=== PATIENT | female | born 1995 | race Caucasian/White ===

== ENCOUNTER 2019-11-13 17:44 | Emergency (ER) | payer BC ==
--- NOTE | 2019-11-13 18:57 | EDM.PDOC ---
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 Patient states that since this morning her urine has been cloudy but she started getting concerned more this afternoon when she had some mild low back pain. Patient states that she has been sitting all day and laying on the couch and noticed that her lower back is been "achy." Patient states that since she has been up and moving she is not currently having this back pain but is having cloudy urine. Patient denies any vaginal bleeding or any abdominal pain or cramping. Patient denies any other symptoms or concerns. Patient denies fever, chills, chest pain, shortness of breath, or cough. Denies headache, neck stiff ness, change in vision, syncope, or near syncope. Denies nausea, vomiting, abdominal pain, diarrhea, constipation, or dysuria. Has not noted any blood in urine or stool. Patient has been eating and drinking appropriately. Review of systems: As per history of present illness and below otherwise all systems reviewed and negative. Past medical history: As per history of present illness and as reviewed below otherwise noncontributory. Surgical history: As per history of present illness and as reviewed below otherwise noncontributory. Social history: See social history for further information Family history: As per history of present illness and as reviewed below otherwise noncontributory. Physical exam: General: Patient is alert, oriented, and in no acute distress. Patient sitting comfortably on exam table. HEENT: Atraumatic, normocephalic, pupils equal and reactive bilaterally, negative for conjunctival pallor or scleral icterus, mucous membranes moist, TMs normal bilaterally, throat clear, neck supple, nontender, trachea midline. No drooling or trismus noted. No meningeal signs. No hot potato voice noted. Lungs: Clear to auscultation, breath sounds equal bilaterally, chest nontender. Heart: S1S2, regular rate and rhythm without overt murmur Abdomen: Soft, nondistended, nontender. Negative for masses or hepatosplenomegaly. Negative for costovertebral tenderness. Pelvis: Stable nontender. Genitourinary: Deferred. Rectal: Deferred. Skin: Intact, warm, dry. No lesions or rashes noted. Extremities: Atraumatic, negative for cords or calf pain. Neurovascular unremarkable. Neuro: Awake, alert, oriented. Cranial nerves II through XII unremarkable. Cerebellum unremarkable. Motor and sensory unremarkable throughout. Exam nonfocal. Notes: Discussed importance for follow-up with her STAVE BOLT EQUALIZER provider. Voices understanding and is agreeable to plan of care. Denies any further questions or concerns at this time. Diagnostics: UA, urine culture Therapeutics: None Prescription: None Impression: H/O abnormal urine color H/O low back pain Plan: 1. Please start and/or continue to take your vitamin with folic acid once daily. 2. Tylenol as needed for pain management. This is safe to use in . 3. Follow up with your STAVE BOLT EQUALIZER as discussed. Return to the ED as needed and as discussed. Definitive disposition and diagnosis as appropriate pending reevaluation and review of above. Lower Back Pain Score (Numeric/FACES): 2 - Related Data Allergies Allergy/AdvReac Type Severity Reaction Status Date / Time No Known Allergies Allergy Verified 11/13/19 18:42 Home Meds: Home Meds . [No Known Home Meds] 11/13/19 [History] Past Medical History STAVE BOLT EQUALIZER History: Reports: - Infectious Disease History Infectious Disease History: Reports: None Social & Family History - Family History Family Medical History: Noncontributory - Tobacco Use Smoking Status *Q: Never Smoker Second Hand Smoke Exposure: No - Caffeine Use Caffeine Use: Reports: None - Recreational Drug Use Recreational Drug Use: No ED ROS GENERAL - Review of Systems Review Of Systems: Comprehensive ROS is negative, except as noted in HPI. ED EXAM, GENERAL - Physical Exam Exam: See Below (see dictation) Course - Vital Signs Last Recorded V/S: Last Vital Signs Temp 97.3 F 11/13/19 18:42 Pulse 97 11/13/19 18:42 Resp 16 11/13/19 18:42 BP 133/77 11/13/19 18:42 Pulse Ox 97 11/13/19 18:42 - Orders/Labs/Meds Orders: Active Orders 24 hr Category Date Time Status CULTURE URINE [RM] Stat Lab 12/30/19 19:32 Ordered Labs: Laboratory Tests 11/13/19 Range/Units 17:46 Urine Color YELLOW Urine Appearance CLEAR Urine pH 6.0 (5.0-8.0) Ur Specific Rogers >= 1.030 (1.001-1.035) Urine Protein NEGATIVE (NEGATIVE) mg/dL Urine Glucose (UA) NEGATIVE (NEGATIVE) mg/dL Urine Ketones NEGATIVE (NEGATIVE) mg/dL Urine Occult Blood NEGATIVE (NEGATIVE) Urine Nitrite NEGATIVE (NEGATIVE) Urine Bilirubin NEGATIVE (NEGATIVE) Urine Urobilinogen 2.0 H (<2.0) EU/dL Ur Leukocyte Esterase NEGATIVE (NEGATIVE) Departure - Departure Time of Disposition: 19:32 Disposition: Home, Self-Care 01 Clinical Impression: Abnormal urine color, History of low back pain - Discharge Information Referrals: Vivienne Ortiz MD [Primary Care Provider] - Forms: ED Department Discharge Additional Instructions: The following information is given to patients seen in the emergency department who are being discharged to home. This information is to outline your options for follow-up care. We provide all patients seen in our emergency department with a follow-up referral. The need for follow-up, as well as the timing and circumstances, are variable depending upon the specifics of your emergency department visit. If you don't have a primary care physician on staff, we will provide you with a referral. We always advise you to contact your personal physician following an emergency department visit to inform them of the circumstance of the visit and for follow-up with them and/or the need for any referrals to a consulting specialist. The emergency department will also refer you to a specialist when appropriate. This referral assures that you have the opportunity for follow-up care with a specialist. All of these measure are taken in an effort to provide you with optimal care, which includes your follow-up. Under all circumstances we always encourage you to contact your private physician who remains a resource for coordinating your care. When calling for follow-up care, please make the office aware that this follow-up is from your recent emergency room visit. If for any reason you are refused follow-up, please contact the [facility] Emergency Department at and asked to speak to the emergency department charge nurse. [facility] [address] [place] [address], [place] [address] [facility] [address] [place] [address] [facility] [address] [place] [address] 1. Please start and/or continue to take your vitamin with folic acid once daily. 2. Tylenol as needed for pain management. This is safe to use in . 3. Follow up with your STAVE [employer]OLT EQUALIZER as discussed. Return to the ED as needed and as discussed. Sepsis Event Note - Evaluation Sepsis Screening Result: No Definite Risk - Focused Exam Vital Signs: Vital Signs Temp Pulse Resp BP Pulse Ox 11/13/19 18:42 97.3 F 97 16 133/77 97 Date Exam was Performed: 11/13/19 Time Exam was Performed: 19:32 - My Orders Last 24 Hours: My Active Orders 11/13/19 19:32 CULTURE URINE [RM] Stat - Assessment/Plan Last 24 Hours: My Active Orders 11/13/19 19:32 CULTURE URINE [RM] Stat
== END 2019-11-13 19:45 | disposition home or self-care (01) ==
LOC: MW.ED 17:44
DX: O99.89 Other specified diseases and conditions complicating pregnancy, childbirth and the puerperium (principal); R82.998 Other abnormal findings in urine; Z3A.15 15 weeks gestation of pregnancy
CPT/HCPCS: 81003; 87086; 99283

== ENCOUNTER 2020-04-22 09:02 | Inpatient (IN) | payer BC ==
[2020-04-22 11:48] LABS: BLOOD UREA NITROGEN,BUN 9 mg/dL (7.0-18.0); CARBON DIOXIDE,CO2 23.2 mmol/L (21.0-32.0); CHLORIDE,CL 105 mmol/L (98-107); GLUCOSE RANDOM 82 mg/dL (74-106); SODIUM,NA 138 mmol/L (136-145)
[2020-04-22] MEDS ORDERED: Water For Irrigation,Sterile 1,000 ML Container IRR PRN (12:57)
[2020-04-22] MEDS ORDERED: Misoprostol 200 MCG Tab PO PRN (12:57)
[2020-04-22] MEDS ORDERED: Carboprost Tromethamine 250 MCG/1 ML Amp IM PRN (12:57)
[2020-04-22] MEDS ORDERED: Sodium Chloride 0.9% 10 ML Syringe FLUSH PRN (12:57)
[2020-04-22] MEDS ORDERED: Terbutaline 1 MG/ML SDV SUBCUT PRN (12:57)
[2020-04-22] MEDS ORDERED: Tranexamic Acid 1,000 MG in Sodium Chloride 0.9% 100 ML IV PRN (12:57)
[2020-04-22] MEDS ORDERED: Butorphanol 1 MG/ML SDV IVPUSH PRN (12:57)
[2020-04-22] MEDS ORDERED: Methylergonovine 0.2 MG/1 ML Amp IM PRN (12:57)
[2020-04-22] MEDS ORDERED: Sodium Chloride 0.9% 10 ML SDV IV PRN (12:57)
[2020-04-22] MEDS ORDERED: Nalbuphine 10 MG/1 ML Vial IVPUSH PRN (12:57)
[2020-04-22] MEDS ORDERED: Lidocaine 1% 50 ML MDV INJECT PRN (12:57)
[2020-04-22] MEDS ORDERED: Ondansetron 4 MG/2 ML SDV IVPUSH PRN (12:57)
[2020-04-22] MEDS ORDERED: Sodium Chloride 0.9% 2.5 ML Syringe FLUSH PRN (12:57)
[2020-04-22] MEDS ORDERED: Oxytocin/0.9 % Sodium Chloride 30 UNIT/500 ML BAG IV SCH ×2 (13:00)
[2020-04-22] MEDS ORDERED: Misoprostol 25 MCG (1/4 of 100 MCG) Tab VAG PRN (14:00)
[2020-04-22] MEDS: Lactated Ringers 1,000 ML IV SCH ×2 (14:51→18:52)
[2020-04-22] MEDS: Misoprostol 25 MCG (1/4 of 100 MCG) Tab VAG PRN ×2 (19:46→23:44)
[2020-04-23] MEDS: Misoprostol 25 MCG (1/4 of 100 MCG) Tab VAG PRN ×2 (03:49→08:40)
[2020-04-23] MEDS ORDERED: Bupivicaine/fentaNYL/NS 250 ML ONE (17:07)
[2020-04-23] MEDS: Lactated Ringers 1,000 ML IV SCH (17:17)
[2020-04-23] MEDS ORDERED: Sodium Chloride 0.9% 20 ML ONE (17:38)
[2020-04-23] MEDS ORDERED: ePHEDrine 50 MG/ML SDV ONE (17:38)
--- NOTE | 2020-04-23 18:07 | PCM.PREANE ---
Preanesthetic Assessment - Anesthesia/Transfusion/Family Hx Anesthesia History: Prior Anesthesia Without Reaction Family History of Anesthesia Reaction: No Transfusion History: No Prior Transfusion(s) - Review of Systems General: No Symptoms Pulmonary: No Symptoms Cardiovascular: No Symptoms Gastrointestinal: No Symptoms Neurological: No Symptoms Other: Reports: None - Physical Assessment Height: 1.77 m Weight: 128.82 kg ASA Class: 2 Mental Status: Alert & Oriented x3 Airway Class: Mallampati = 2 Dentition: Reports: Normal Dentition ROM/Head Extension: Full - Lab Values: Laboratory Last Values WBC 11.82 K/uL (4.0-11.0) H 04/22/20 11:13 RBC 4.29 M/uL (4.30-5.90) L 04/22/20 11:13 Hgb 13.3 g/dL (12.0-16.0) 04/22/20 11:13 Hct 39.1 % (36.0-46.0) 04/22/20 11:13 MCV 91.1 fL (80.0-98.0) 04/22/20 11:13 MCH 31.0 pg (27.0-32.0) 04/22/20 11:13 MCHC 34.0 g/dL (31.0-37.0) 04/22/20 11:13 RDW Std Deviation 42.8 fl (28.0-62.0) 04/22/20 11:13 RDW Coeff of Jessica 13 % (11.0-15.0) 04/22/20 11:13 Plt Count 189 K/uL (150-400) 04/22/20 11:13 MPV 10.50 fL (7.40-12.00) 04/22/20 11:13 Neut % (Auto) 82.3 % (48.0-80.0) H 04/22/20 11:13 Lymph % (Auto) 12.4 % (16.0-40.0) L 04/22/20 11:13 Boundary % (Auto) 4.9 % (0.0-15.0) 04/22/20 11:13 Eos % (Auto) 0.3 % (0.0-7.0) 04/22/20 11:13 Baso % (Auto) 0.1 % (0.0-1.5) 04/22/20 11:13 Neut # (Auto) 9.7 K/uL (1.4-5.7) H 04/22/20 11:13 Lymph # (Auto) 1.5 K/uL (0.6-2.4) 04/22/20 11:13 Boundary # (Auto) 0.6 K/uL (0.0-0.8) 04/22/20 11:13 Eos # (Auto) 0.0 K/uL (0.0-0.7) 04/22/20 11:13 Baso # (Auto) 0.0 K/uL (0.0-0.1) 04/22/20 11:13 Nucleated RBC % 0.0 /100WBC 04/22/20 11:13 Nucleated RBCs # 0 K/uL 04/22/20 11:13 Sodium 138 mmol/L (136-145) 04/22/20 11:13 Potassium 4.0 mmol/L (3.5-5.1) 04/22/20 11:13 Chloride 105 mmol/L (98-107) 04/22/20 11:13 Carbon Dioxide 23.2 mmol/L (21.0-32.0) 04/22/20 11:13 BUN 9 mg/dL (7.0-18.0) 04/22/20 11:13 Creatinine 0.7 mg/dL (0.6-1.0) 04/22/20 11:13 Est Cr Clr Drug Dosing TNP 04/22/20 11:13 Estimated GFR (MDRD) > 60.0 ml/min 04/22/20 11:13 Glucose 82 mg/dL (74-106) 04/22/20 11:13 Uric Acid 3.6 mg/dL (2.6-7.2) 04/22/20 11:13 Calcium 8.5 mg/dL (8.5-10.1) 04/22/20 11:13 Total Bilirubin 0.6 mg/dL (0.2-1.0) 04/22/20 11:13 AST 21 IU/L (15-37) 04/22/20 11:13 ALT 22 IU/L (14-63) 04/22/20 11:13 Alkaline Phosphatase 142 U/L (46-116) H 04/22/20 11:13 Total Protein 6.2 g/dL (6.4-8.2) L 04/22/20 11:13 Albumin 2.3 g/dL (3.4-5.0) L 04/22/20 11:13 Globulin 3.9 g/dL (2.6-4.0) 04/22/20 11:13 Albumin/Globulin Ratio 0.6 (0.9-1.6) L 04/22/20 11:13 Ur Random Creatinine 102.1 mg/dL 04/22/20 09:15 U Random Total Protein 18.6 mg/dL (<11.9) H 04/22/20 09:15 Protein/Creatinin Ratio 0.2 04/22/20 09:15 RPR Non-Reac (Non-Reac) 04/22/20 11:13 Blood Type A NEGATIVE 04/22/20 14:15 Antibody Screen NEGATIVE 04/22/20 14:15 - Allergies Allergies/Adverse Reactions: Allergies Allergy/AdvReac Type Severity Reaction Status Date / Time No Known Allergies Allergy Verified 11/13/19 18:42 - Blood Blood Available: No - Acknowledgements Anesthesia Type Planned: Epidural Pt an Appropriate Candidate for the Planned Anesthesia: Yes Alternatives and Risks of Anesthesia Discussed w Pt/Guardian: Yes Pt/Guardian Understands and Agrees with Anesthesia Plan: Yes Additional Comments: Denies any personal or family hx of bleeding or clotting problems PreAnesthesia Questionnaire HEENT History: Reports: Hard of Hearing Other HEENT History: right ear, hard of hearing. Cardiovascular History: Reports: Other (See Below) Other Cardiovascular History: gestational hypertension Genitourinary History: Reports: STD OVERCOILER History: Reports: , Spontaneous - Infectious Disease History Infectious Disease History: Reports: Chicken Pox - Past Surgical History HEENT Surgical History: Reports: Adenoidectomy, Other (See Below) Other HEENT Surgeries/Procedures: multiple sets of tubes in ears Cardiovascular Surgical History: Reports: None Female Surgical History: Reports: None - SUBSTANCE USE Smoking Status *Q: Never Smoker Second Hand Smoke Exposure: No Recreational Drug Use History: No - HOME MEDS Home Medications: Home Meds Aspirin [Adult Low Dose Aspirin EC] 81 mg PO DAILY 04/22/20 [History] Vits #93/Iron Fum/FA [ Formula Tablet] 1 each PO DAILY [History] - CURRENT (IN HOUSE) MEDS Current Meds: Current Medications Butorphanol Tartrate (Stadol) 1 mg IVPUSH Q1H PRN PRN Reason: Pain Last Admin: 04/23/20 15:51 Dose: 1 mg Carboprost Tromethamine (Hemabate Ds) 250 mcg IM ASDIRECTED PRN PRN Reason: Post Hemorrhage Tranexamic Acid 1,000 mg/ (Sodium Chloride) 110 mls @ 660 mls/hr IV ONETIME PRN PRN Reason: Bleeding Lactated Ringer's (Ringers, Lactated) 1,000 mls @ 150 mls/hr IV ASDIRECTED PAOLO Last Admin: 04/23/20 17:17 Dose: 999 mls/hr Oxytocin/Sodium Chloride (Oxytocin 30 Unit/500 Ml-Ns) 30 unit in 500 mls @ 999 mls/hr IV TITRATE PAOLO Oxytocin/Sodium Chloride (Oxytocin 30 Unit/500 Ml-Ns) 30 unit in 500 mls @ 2 mls/hr IV TITRATE PAOLO; Protocol Lidocaine HCl (Xylocaine 1%) 50 ml INJECT ONETIME PRN PRN Reason: Laceration repair Methylergonovine Maleate (Methergine) 0.2 mg IM ASDIRECTED PRN PRN Reason: Post Hemorrhage Misoprostol (Cytotec) 200 mcg PO ONETIME PRN PRN Reason: Post Hemorrhage Misoprostol (Cytotec) 25 mcg VAG ONETIME PRN PRN Reason: Cervical Ripening Last Admin: 04/22/20 15:45 Dose: 25 mcg Misoprostol (Cytotec) 25 mcg VAG Q4H PRN PRN Reason: Cervical Ripening Last Admin: 04/23/20 08:40 Dose: 25 mcg Nalbuphine HCl (Nubain) 10 mg IVPUSH Q1H PRN PRN Reason: Pain (severe 7-10) Ondansetron HCl (Zofran) 4 mg IVPUSH Q6H PRN PRN Reason: Nausea/Vomiting Sodium Chloride (Saline Flush) 10 ml FLUSH ASDIRECTED PRN PRN Reason: Keep Vein Open Sodium Chloride (Saline Flush) 2.5 ml FLUSH ASDIRECTED PRN PRN Reason: Keep Vein Open Sodium Chloride (Normal Saline) 10 ml IV ASDIRECTED PRN PRN Reason: IV Use Sterile Water (Sterile Water For Irrigation) 1,000 ml IRR ASDIRECTED PRN PRN Reason: delivery Terbutaline Sulfate (Brethine) 0.25 mg SUBCUT ASDIRECTED PRN PRN Reason: Tacysystole Discontinued Medications Ephedrine Sulfate (Ephedrine Sulfate) Confirm Administered Dose 50 mg .ROUTE .STK-MED ONE Stop: 04/23/20 17:39 Fentanyl/Bupivacaine HCl (Fentanyl/Bupivacaine/Ns 2 Mcg-0.125% 250 Ml) Confirm Administered Dose 250 mls @ as directed .ROUTE .STK-MED ONE Stop: 04/23/20 17:08 Sodium Chloride (Normal Saline) Confirm Administered Dose 20 mls @ as directed .ROUTE .STK-MED ONE Stop: 04/23/20 17:39
[2020-04-24] MEDS: Lactated Ringers 1,000 ML IV SCH ×3 (00:45→13:19)
[2020-04-24] MEDS ORDERED: Ondansetron 4 MG/2 ML SDV ONE ×2 (02:22→11:02)
[2020-04-24] MEDS ORDERED: Bupivacaine 0.5% 30 ML SDV ONE (10:57)
[2020-04-24] MEDS ORDERED: Azithromycin 500 MG in Sodium Chloride 0.9% 250 ML IV SCH (11:00)
[2020-04-24] MEDS ORDERED: Morphine PF 10 MG/10 ML SDV ONE (11:10)
[2020-04-24] MEDS ORDERED: Citric Acid/Sodium Citrate Solution 30 ML Cup ONE (11:14)
[2020-04-24] MEDS ORDERED: Octyl 2-Cyanoacrylate 1 Tube ONE (11:15)
[2020-04-24] MEDS ORDERED: Sodium Chloride 0.9% 20 ML ONE (11:29)
[2020-04-24] MEDS ORDERED: ceFAZolin 1 GM Vial ONE (11:29)
[2020-04-24] MEDS ORDERED: Acetaminophen/oxyCODONE 325-5 MG Tab PO PRN ×2 (11:30→12:21)
[2020-04-24] MEDS ORDERED: fentaNYL 100 MCG/2 ML SDV IVPUSH PRN (11:30)
[2020-04-24] MEDS ORDERED: Nalbuphine 10 MG/1 ML Vial IVPUSH PRN (11:30)
[2020-04-24] MEDS ORDERED: Sodium Chloride 0.9% 10 ML Syringe FLUSH PRN (12:21)
[2020-04-24] MEDS ORDERED: Oxytocin 10 Units/1 ML SDV IM PRN (12:21)
[2020-04-24] MEDS ORDERED: Lanolin 100% Cream 7 GM Tube TOP PRN (12:21)
[2020-04-24] MEDS ORDERED: Bisacodyl 10 MG Supp RECTAL PRN (12:21)
[2020-04-24] MEDS ORDERED: Ondansetron 4 MG/2 ML SDV IVPUSH PRN (12:21)
[2020-04-24] MEDS ORDERED: Misoprostol 200 MCG Tab RECTAL PRN (12:21)
[2020-04-24] MEDS ORDERED: diphenhydrAMINE 50 MG/ML SDV IVPUSH PRN (12:21)
[2020-04-24] MEDS ORDERED: Methylergonovine 0.2 MG/1 ML Amp IM PRN (12:21)
[2020-04-24] MEDS ORDERED: Sodium Chloride 0.9% 2.5 ML Syringe FLUSH PRN (12:21)
[2020-04-24] MEDS ORDERED: Tranexamic Acid 1,000 MG in Sodium Chloride 0.9% 100 ML IV PRN (12:21)
--- NOTE | 2020-04-24 12:26 | PCM.OPNOTE ---
- General Post-Op/Procedure Note Date of Surgery/Procedure: 04/24/20 Operative Procedure(s): Primary low-transverse section Findings: Live male infant, direct OP position, Apgars 8/9, weight 3590g Normal uterus, ovaries, and tubes Placenta intact Pre Op Diagnosis: 24yo @ 38w2d. Induction of labor for gestational hypertension. Arrest of descent Post-Op Diagnosis: 24yo @ 38w2d. Induction of labor for gestational hypertension. Arrest of descent Anesthesia Technique: Epidural Primary Surgeon: Vivienne Ortiz Anesthesia Provider: Jose Antonio Villa Pathology: Placenta, cord blood, cord gases Fluid Replacement, Intraop: 500 Output, Urine Amount: 250 EBL in mLs: 600 Complications: 4mm burn inferior left aspect of incision Condition: Good Free Text/Narrative:: Intake & Output 04/23/20 04/24/20 04/24/20 22:59 06:59 14:59 Intake Total 1000 Balance 1000
[2020-04-24] MEDS ORDERED: Lactated Ringers 1,000 ML IV SCH (12:30)
[2020-04-24] MEDS ORDERED: Oxytocin/Lactated Ringers 30 UNIT/500 ML BAG IV SCH (12:30)
[2020-04-24] MEDS: Ketorolac 30 MG/ML SDV IVPUSH SCH ×2 (12:53→18:29)
--- NOTE | 2020-04-24 13:25 | PCM.POSTAN ---
POST ANESTHESIA ASSESSMENT - MENTAL STATUS Mental Status: Alert, Oriented - RESPIRATORY Respiratory Status: Respiratory Rate WNL, Airway Patent, O2 Saturation Stable - CARDIOVASCULAR CV Status: Pulse Rate WNL, Blood Pressure Stable - GASTROINTESTINAL GI Status: No Symptoms - PAIN Pain Score: 0 - POST OP HYDRATION Hydration Status: Adequate & Stable - OBSERVATIONS Free Text/Narrative:: Denies any complaints at this time. States she feels much better.
[2020-04-24] MEDS: Silver Sulfadiazine 1% Crm 50 GM Tube TOP SCH ×2 (19:17→21:24)
[2020-04-24] MEDS: Docusate Sodium 100 MG Cap PO SCH (21:18)
[2020-04-25] MEDS: Ketorolac 30 MG/ML SDV IVPUSH SCH ×3 (00:38→12:29)
--- NOTE | 2020-04-25 01:49 | OR ---
SURGEON: Vivienne Ortiz MD DATE OF PROCEDURE: 04/24/2020 PREOPERATIVE DIAGNOSES: 1. 24-year-old, G2, P 0-0-1-0, at 38 weeks and 2 days' gestation. 2. Induction of labor for gestational hypertension. 3. Arrest of descent. POSTOPERATIVE DIAGNOSES: 1. 24-year-old, G2, P 0-0-1-0, at 38 weeks and 2 days' gestation. 2. Induction of labor for gestational hypertension. 3. Arrest of descent. PROCEDURE: Primary low transverse section. PRIMARY SURGEON: Vivienne Ortiz MD ANESTHESIA: Epidural via Dr. Jose Antonio Villa. IV FLUIDS: 500 mL LR. ESTIMATED BLOOD LOSS: 600 mL. URINE OUTPUT: 250 mL clear yellow urine at the end of procedure. ANTIBIOTIC PROPHYLAXIS: 2 g of Ancef and 500 mg azithromycin IV, vaginal iodine swab. FINDINGS: Live male infant in direct occiput posterior position, scores 8 and 9 at one and five minutes respectively. Weight 3590 g. Placenta intact with 3- vessel cord. Uterus, ovaries, and tubes normal. 4 mm burn in the inferior left aspect of the incision. INDICATIONS: This is a 24-year-old G2, P 0-0-1-0, who presented at 38 weeks and 0 days' gestation for induction of labor due to gestational hypertension. Induction of labor was begun with Cytotec and she received 5 doses. She began mitchel and changing her cervix spontaneously. She had spontaneous rupture of membranes at 3 cm dilated. She was begun on Pitocin for the rest of contractions. She progressed to complete cervical dilation and began pushing. After approximately 2.5 hours of pushing, an evaluation was performed. The was felt to be in direct occiput posterior position. An attempted rotation was undertaken, however, was unsuccessful. At this time, the decision was made to proceed with primary section for arrest of descent. The risks and benefits of C- section were discussed with the patient and she agreed to proceed. DESCRIPTION OF PROCEDURE: The patient was taken to the operating room with epidural anesthesia bolus. She was placed in dorsal supine position with leftward tilt. She was prepared and draped in the normal sterile fashion along with a vaginal prep. A Pfannenstiel skin incision was made with a scalpel and carried through to the underlying layer of fascia with the Bovie. The fascia was incised in the midline and the incision extended laterally with curved Judd scissors. Peritoneum was identified and entered bluntly with a digit. The peritoneal incision was extended using manual traction. A large Rayo retractor was placed. A bladder flap was created in the usual manner. A lower uterine hysterotomy was performed. The infant was confirmed to be in direct occiput posterior position. With some difficulty, the 's head was delivered followed by the shoulders and remainder of the body. The cord was clamped and cut and the was handed off to the awaiting nurse. The placenta was then removed using traction on the cord and uterine massage. The uterus was cleared of all clots and debris. The hysterotomy was repaired with a running lock stitch of 0 Vicryl suture. A 2nd stitch of the same suture was used to obtain hemostasis. The uterus was returned to the abdomen. The gutters were cleared of clots. The hysterotomy was inspected and noted to be hemostatic. The Rayo retractor was removed. The fascia was closed with a running stitch of 0 Vicryl suture. The subcutaneous tissue was closed with a running stitch of 3-0 Vicryl suture. The skin was closed with 4-0 Monocryl in subcuticular fashion. [id number] / MODL /[id number] DOYLE
--- NOTE | 2020-04-25 07:22 | PCM48HPAN ---
Post Anesthesia Note - EVALUATION WITHIN 48HRS OF ANESTHETIC Vital Signs in Normal Range: Yes Patient Participated in Evaluation: Yes Respiratory Function Stable: Yes Airway Patent: Yes Cardiovascular Function Stable: Yes Hydration Status Stable: Yes Pain Control Satisfactory: Yes Nausea and Vomiting Control Satisfactory: Yes Mental Status Recovered: Yes Vital Signs: Last Vital Signs Temp 36.3 C 04/25/20 05:00 Pulse 90 04/25/20 06:57 Resp 15 04/25/20 06:57 BP 129/74 04/25/20 05:00 Pulse Ox 98 04/25/20 06:57
--- NOTE | 2020-04-25 08:17 | PCM.PNPP ---
- General Info Date of Service: 04/25/20 Functional Status: Reports: Pain Controlled, Tolerating Diet, Ambulating - Review of Systems General: Reports: No Symptoms HEENT: Reports: No Symptoms Pulmonary: Reports: No Symptoms Cardiovascular: Reports: No Symptoms Gastrointestinal: Reports: No Symptoms Genitourinary: Reports: No Symptoms Musculoskeletal: Reports: No Symptoms Skin: Reports: No Symptoms Neurological: Reports: No Symptoms Psychiatric: Reports: No Symptoms - Patient Data Vital Signs - Most Recent: Last Vital Signs Temp 35.7 C L 04/25/20 07:45 Pulse 75 04/25/20 07:45 Resp 15 04/25/20 07:45 BP 120/60 04/25/20 07:45 Pulse Ox 96 04/25/20 07:45 Weight - Most Recent: 128.82 kg I&O - Last 24 Hours: Intake & Output 04/24/20 04/25/20 04/25/20 22:59 06:59 14:59 Intake Total 200 Output Total 550 925 Balance -350 -925 Lab Results - Last 24 Hours: Laboratory Results - last 24 hr 04/24/20 04/24/20 04/25/20 Range/Units 11:39 11:39 04:55 Hgb 11.5 L (12.0-16.0) g/dL Hct 34.0 L (36.0-46.0) % Cord ABG pH 7.235 (7.18-7.38) Cord ABG Base Excess -5 (-10--2) Cord VBG pH 7.299 (7.25-7.45) Cord VBG Base Excess -6 (-10--2) Med Orders - Current: Current Medications Bisacodyl (Dulcolax) 10 mg RECTAL ONETIME PRN PRN Reason: Constipation Butorphanol Tartrate (Stadol) 1 mg IVPUSH Q1H PRN PRN Reason: Pain Last Admin: 04/23/20 15:51 Dose: 1 mg Carboprost Tromethamine (Hemabate Ds) 250 mcg IM ASDIRECTED PRN PRN Reason: Post Hemorrhage Diphenhydramine HCl (Benadryl) 25 mg IVPUSH Q6H PRN PRN Reason: Itching or Nausea Docusate Sodium (Colace) 100 mg PO BID [facility] Last Admin: 06/10/20 21:18 Dose: 100 mg Emollient Ointment (Lansinoh Hpa) 0 gm TOP ASDIRECTED PRN PRN Reason: Sore Nipples Fentanyl (Sublimaze) 50 mcg IVPUSH Q5M PRN PRN Reason: Pain (severe 7-10) Stop: 04/25/20 11:31 Tranexamic Acid 1,000 mg/ (Sodium Chloride) 110 mls @ 660 mls/hr IV ONETIME PRN PRN Reason: Bleeding Lactated Ringer's (Ringers, Lactated) 1,000 mls @ 150 mls/hr IV ASDIRECTED [facility] Last Admin: 04/24/20 13:19 Dose: 150 mls/hr Oxytocin/Sodium Chloride (Oxytocin 30 Unit/500 Ml-Ns) 30 unit in 500 mls @ 999 mls/hr IV TITRATE [facility] Oxytocin/Sodium Chloride (Oxytocin 30 Unit/500 Ml-Ns) 30 unit in 500 mls @ 2 mls/hr IV TITRATE [facility]; Protocol Last Titration: 04/24/20 10:53 Dose: 0 munits/min, 0 mls/hr Azithromycin 500 mg/ Sodium (Chloride) 250 mls @ 250 mls/hr IV ONETIME [facility] Tranexamic Acid 1,000 mg/ (Sodium Chloride) 110 mls @ 660 mls/hr IV ONETIME PRN PRN Reason: Bleeding Lactated Ringer's (Ringers, Lactated) 1,000 mls @ 125 mls/hr IV ASDIRECTED [facility] Oxytocin/Lactated Ringer's (Pitocin In Lr 30 Units/500 Ml) 30 unit in 500 mls @ 999 mls/hr IV TITRATE [facility]; Protocol Ibuprofen (Motrin) 800 mg PO Q8H PRN PRN Reason: mild pain or fever Ketorolac Tromethamine (Toradol) 30 mg IVPUSH Q6H [facility] Stop: 04/25/20 12:31 Last Admin: 04/25/20 06:28 Dose: 30 mg Lidocaine HCl (Xylocaine 1%) 50 ml INJECT ONETIME PRN PRN Reason: Laceration repair Methylergonovine Maleate (Methergine) 0.2 mg IM ASDIRECTED PRN PRN Reason: Post Hemorrhage Methylergonovine Maleate (Methergine) 0.2 mg IM ONETIME PRN PRN Reason: Excessive Vaginal Bleeding Misoprostol (Cytotec) 200 mcg PO ONETIME PRN PRN Reason: Post Hemorrhage Misoprostol (Cytotec) 25 mcg VAG ONETIME PRN PRN Reason: Cervical Ripening Last Admin: 04/22/20 15:45 Dose: 25 mcg Misoprostol (Cytotec) 25 mcg VAG Q4H PRN PRN Reason: Cervical Ripening Last Admin: 04/23/20 08:40 Dose: 25 mcg Misoprostol (Cytotec) 1,000 mcg RECTAL ONETIME PRN PRN Reason: excessive bleeding Nalbuphine HCl (Nubain) 10 mg IVPUSH Q1H PRN PRN Reason: Pain (severe 7-10) Nalbuphine HCl (Nubain) 2.5 mg IVPUSH Q3H PRN PRN Reason: Pruritis Stop: 04/25/20 11:31 Ondansetron HCl (Zofran) 4 mg IVPUSH Q6H PRN PRN Reason: Nausea/Vomiting Last Admin: 04/24/20 02:24 Dose: 4 mg Ondansetron HCl (Zofran) 4 mg IVPUSH Q4H PRN PRN Reason: Nausea/Vomiting Oxycodone/Acetaminophen (Percocet 325-5 Mg) 1 tab PO ONETIME PRN PRN Reason: Pain (moderate 4-6) Oxycodone/Acetaminophen (Percocet 325-5 Mg) 1 tab PO Q4H PRN PRN Reason: Pain (moderate 4-6) Oxycodone/Acetaminophen (Percocet 325-5 Mg) 2 tab PO Q4H PRN PRN Reason: Pain (moderate 4-6) Oxytocin (Pitocin) 10 unit IM ASDIRECTED PRN PRN Reason: Excessive Vaginal Bleeding Silver Sulfadiazine (Silvadene 1% Cream 50 Gm) 1 gm TOP BID [facility] Last Admin: 04/24/20 21:24 Dose: Not Given Sodium Chloride (Saline Flush) 10 ml FLUSH ASDIRECTED PRN PRN Reason: Keep Vein Open Sodium Chloride (Saline Flush) 2.5 ml FLUSH ASDIRECTED PRN PRN Reason: Keep Vein Open Sodium Chloride (Normal Saline) 10 ml IV ASDIRECTED PRN PRN Reason: IV Use Sodium Chloride (Saline Flush) 10 ml FLUSH ASDIRECTED PRN PRN Reason: Keep Vein Open Sodium Chloride (Saline Flush) 2.5 ml FLUSH ASDIRECTED PRN PRN Reason: Keep Vein Open Sterile Water (Sterile Water For Irrigation) 1,000 ml IRR ASDIRECTED PRN PRN Reason: delivery Terbutaline Sulfate (Brethine) 0.25 mg SUBCUT ASDIRECTED PRN PRN Reason: Tacysystole Discontinued Medications Bupivacaine HCl (Marcaine 0.5%) Confirm Administered Dose 30 ml .ROUTE .STK-MED ONE Stop: 04/24/20 10:58 Last Admin: 04/24/20 12:47 Dose: Not Given Cefazolin Sodium (Ancef) Confirm Administered Dose 2 gm .ROUTE .STK-MED ONE Stop: 04/24/20 11:30 Citric Acid/Sodium Citrate (Bicitra Solution) Confirm Administered Dose 30 ml .ROUTE .STK-MED ONE Stop: 04/24/20 11:15 Last Admin: 04/24/20 11:18 Dose: 30 ml Ephedrine Sulfate (Ephedrine Sulfate) Confirm Administered Dose 50 mg .ROUTE .STCrossbar-MED ONE Stop: 04/23/20 17:39 Fentanyl/Bupivacaine HCl (Fentanyl/Bupivacaine/Ns 2 Mcg-0.125% 250 Ml) Confirm Administered Dose 250 mls @ as directed .ROUTE .STCrossbar-MED ONE Stop: 04/23/20 17:08 Last Admin: 04/24/20 12:46 Dose: Not Given Sodium Chloride (Normal Saline) Confirm Administered Dose 20 mls @ as directed .ROUTE .STK-MED ONE Stop: 04/23/20 17:39 Sodium Chloride (Normal Saline) Confirm Administered Dose 20 mls @ as directed .ROUTE .STCrossbar-MED ONE Stop: 04/24/20 11:30 Morphine Sulfate (Duramorph Pf) Confirm Administered Dose 10 mg .ROUTE .STK-MED ONE Stop: 04/24/20 11:11 Octyl Cyanoacrylate (Dermabond Advance) Confirm Administered Dose 1 applic .ROUTE .STCrossbar-MED ONE Stop: 04/24/20 11:16 Last Admin: 04/24/20 12:47 Dose: Not Given Ondansetron HCl (Zofran) Confirm Administered Dose 4 mg .ROUTE .STK-MED ONE Stop: 04/24/20 11:03 - Interaction Disposition, : [place] at Bedside Feeding: Breastfed ; Nursed Well Support Person: - Recovery Exam Fundal Tone: Firm Fundal Level: 2 Fingerbreadths Below Umbilicus Fundal Placement: Midline Lochia Amount: Scant Lochia Color: Rubra/Red Urinary Elimination: Not Voiding (catheter removed, has not attempted to void yet) - Exam General: Alert, Oriented Neck: Supple Lungs: Normal Respiratory Effort GI/Abdominal Exam: Soft, No Distention, Tender (appropriate tenderness to palpation) Extremities: Pedal Edema (2+, decreased from day prior) Skin: Warm, Dry, Intact Wound/Incisions: Dressing Dry and Intact Neurological: No New Focal Deficit Psy/Mental Status: Alert, Normal Affect, Normal Mood - Problem List & Annotations (1) Status post primary low transverse section SNOMED Code(s): 839119331, 09083061, 303256139, 933331650, [id number] Code(s): Z98.891 - HISTORY OF UTERINE SCAR FROM PREVIOUS SURGERY Status: Acute Current Visit: Yes - Problem List Review Problem List Initiated/Reviewed/Updated: Yes - My Orders Last 24 Hours: My Active Orders 04/24/20 11:00 Azithromycin [Zithromax] 500 mg Sodium Chloride 0.9% [Normal Saline (AdvBag)] 250 ml IV ONETIME 04/24/20 12:21 Patient Status [ADT] Routine Ambulate [RC] PER UNIT ROUTINE Antiembolic Devices [RC] PER UNIT ROUTINE Communication Order [RC] PER UNIT ROUTINE Communication Order [RC] PER UNIT ROUTINE Communication Order [RC] Per Unit Routine Intake and Output [RC] QSHIFT Notify Provider Intake and Out [RC] ASDIRECTED Notify Provider Vital Signs [RC] ASDIRECTED RT Incentive Spirometry [RC] Q2HWA Acetaminophen/oxyCODONE [Percocet 325-5 MG] 1 tab PO Q4H PRN Acetaminophen/oxyCODONE [Percocet 325-5 MG] 2 tab PO Q4H PRN Lanolin [Lansinoh HPA] See Dose Instructions TOP ASDIRECTED PRN Methylergonovine [Methergine] 0.2 mg IM ONETIME PRN Ondansetron [Zofran] 4 mg IVPUSH Q4H PRN Oxytocin [Pitocin] 10 unit IM ASDIRECTED PRN Sodium Chloride 0.9% [Saline Flush] 10 ml FLUSH ASDIRECTED PRN Sodium Chloride 0.9% [Saline Flush] 2.5 ml FLUSH ASDIRECTED PRN Tranexamic Acid [Cyklokapron] 1,000 mg Sodium Chloride 0.9% [Normal Saline] 100 ml IV ONETIME bisacodyL [Dulcolax] 10 mg RECTAL ONETIME PRN diphenhydrAMINE [Benadryl] 25 mg IVPUSH Q6H PRN miSOPROStoL [Cytotec] 1,000 mcg RECTAL ONETIME PRN Abdominal Binder [OM.PC] Routine Assess Lochia [WOMSER] Per Unit Routine Assess Uterine Involution [WOMSER] Per Unit Routine Breast Pump [WOMSER] Per Unit Routine DVT/VTE Prophylaxis Reflex [OM.PC] Routine Heat Therapy [OM.PC] Routine Ice Therapy [OM.PC] Routine Peripheral IV Discontinue [OM.PC] Routine Saline Lock Insert [OM.PC] Routine Sequential Compression Device [OM.PC] Per Unit Routine 04/24/20 12:23 Antiembolic Devices [RC] .Routine 04/24/20 12:27 Silver Sulfadiazine [Silvadene 1% Cream 50 GM] 1 gm TOP BID 04/24/20 12:30 Ketorolac [Toradol] 30 mg IVPUSH Q6H Lactated Ringers [Ringers, Lactated] 1,000 ml IV ASDIRECTED Oxytocin/Lactated Ringers [Pitocin in LR 30 Units/500 ML] 30 unit in 500 ml IV TITRATE 04/24/20 21:00 Docusate Sodium [Colace] 100 mg PO BID 04/24/20 Lunch Regular Diet [DIET] 04/25/20 17:30 Ibuprofen [Motrin] 800 mg PO Q8H PRN - Assessment Assessment:: 24yo s/p 1LTCS for arrest of descent at 38w2d, POD#1 - Plan Plan:: 1. Routine care, encourage ambulation today. 2. Gestational hypertension, blood pressure normal since delivery. 3. Continue .
[2020-04-25] MEDS: Silver Sulfadiazine 1% Crm 50 GM Tube TOP SCH ×2 (08:58→23:08)
[2020-04-25] MEDS: Docusate Sodium 100 MG Cap PO SCH (08:58)
[2020-04-25] MEDS ORDERED: Ibuprofen 800 MG Tab PO PRN (17:30)
[2020-04-25] MEDS: Acetaminophen/oxyCODONE 325-5 MG Tab PO PRN ×2 (17:48→21:36)
[2020-04-26] MEDS: Acetaminophen/oxyCODONE 325-5 MG Tab PO PRN ×3 (03:06→12:40)
[2020-04-26] MEDS: Docusate Sodium 100 MG Cap PO SCH ×2 (03:06→08:48)
--- NOTE | 2020-04-26 08:26 | PCM.PNPP ---
- General Info Date of Service: 04/26/20 Subjective Update: Minimal lochia. Functional Status: Reports: Pain Controlled, Tolerating Diet, Ambulating, Urinating - Review of Systems General: Reports: No Symptoms HEENT: Reports: No Symptoms Pulmonary: Reports: No Symptoms Cardiovascular: Reports: No Symptoms Gastrointestinal: Reports: No Symptoms Genitourinary: Reports: No Symptoms Musculoskeletal: Reports: No Symptoms Skin: Reports: No Symptoms Neurological: Reports: No Symptoms Psychiatric: Reports: No Symptoms - Patient Data Vital Signs - Most Recent: Last Vital Signs Temp 36.3 C 04/26/20 04:52 Pulse 86 04/26/20 04:52 Resp 16 04/26/20 04:52 BP 115/56 L 04/26/20 04:52 Pulse Ox 95 04/26/20 04:52 Weight - Most Recent: 128.82 kg Med Orders - Current: Current Medications Bisacodyl (Dulcolax) 10 mg RECTAL ONETIME PRN PRN Reason: Constipation Butorphanol Tartrate (Stadol) 1 mg IVPUSH Q1H PRN PRN Reason: Pain Last Admin: 04/23/20 15:51 Dose: 1 mg Carboprost Tromethamine (Hemabate Ds) 250 mcg IM ASDIRECTED PRN PRN Reason: Post Hemorrhage Diphenhydramine HCl (Benadryl) 25 mg IVPUSH Q6H PRN PRN Reason: Itching or Nausea Docusate Sodium (Colace) 100 mg PO BID [facility] Last Admin: 04/26/20 03:06 Dose: 100 mg Emollient Ointment (Lansinoh Hpa) 0 gm TOP ASDIRECTED PRN PRN Reason: Sore Nipples Tranexamic Acid 1,000 mg/ (Sodium Chloride) 110 mls @ 660 mls/hr IV ONETIME PRN PRN Reason: Bleeding Lactated Ringer's (Ringers, Lactated) 1,000 mls @ 150 mls/hr IV ASDIRECTED [facility] Last Admin: 04/24/20 13:19 Dose: 150 mls/hr Oxytocin/Sodium Chloride (Oxytocin 30 Unit/500 Ml-Ns) 30 unit in 500 mls @ 999 mls/hr IV TITRATE [facility] Oxytocin/Sodium Chloride (Oxytocin 30 Unit/500 Ml-Ns) 30 unit in 500 mls @ 2 mls/hr IV TITRATE [facility]; Protocol Last Titration: 04/24/20 10:53 Dose: 0 munits/min, 0 mls/hr Azithromycin 500 mg/ Sodium (Chloride) 250 mls @ 250 mls/hr IV ONETIME [facility] Tranexamic Acid 1,000 mg/ (Sodium Chloride) 110 mls @ 660 mls/hr IV ONETIME PRN PRN Reason: Bleeding Lactated Ringer's (Ringers, Lactated) 1,000 mls @ 125 mls/hr IV ASDIRECTED [facility] Oxytocin/Lactated Ringer's (Pitocin In Lr 30 Units/500 Ml) 30 unit in 500 mls @ 999 mls/hr IV TITRATE [facility]; Protocol Ibuprofen (Motrin) 800 mg PO Q8H PRN PRN Reason: mild pain or fever Lidocaine HCl (Xylocaine 1%) 50 ml INJECT ONETIME PRN PRN Reason: Laceration repair Methylergonovine Maleate (Methergine) 0.2 mg IM ASDIRECTED PRN PRN Reason: Post Hemorrhage Methylergonovine Maleate (Methergine) 0.2 mg IM ONETIME PRN PRN Reason: Excessive Vaginal Bleeding Misoprostol (Cytotec) 200 mcg PO ONETIME PRN PRN Reason: Post Hemorrhage Misoprostol (Cytotec) 25 mcg VAG ONETIME PRN PRN Reason: Cervical Ripening Last Admin: 04/22/20 15:45 Dose: 25 mcg Misoprostol (Cytotec) 25 mcg VAG Q4H PRN PRN Reason: Cervical Ripening Last Admin: 04/23/20 08:40 Dose: 25 mcg Misoprostol (Cytotec) 1,000 mcg RECTAL ONETIME PRN PRN Reason: excessive bleeding Nalbuphine HCl (Nubain) 10 mg IVPUSH Q1H PRN PRN Reason: Pain (severe 7-10) Ondansetron HCl (Zofran) 4 mg IVPUSH Q6H PRN PRN Reason: Nausea/Vomiting Last Admin: 04/24/20 02:24 Dose: 4 mg Ondansetron HCl (Zofran) 4 mg IVPUSH Q4H PRN PRN Reason: Nausea/Vomiting Oxycodone/Acetaminophen (Percocet 325-5 Mg) 1 tab PO ONETIME PRN PRN Reason: Pain (moderate 4-6) Oxycodone/Acetaminophen (Percocet 325-5 Mg) 1 tab PO Q4H PRN PRN Reason: Pain (moderate 4-6) Oxycodone/Acetaminophen (Percocet 325-5 Mg) 2 tab PO Q4H PRN PRN Reason: Pain (moderate 4-6) Last Admin: 04/26/20 03:06 Dose: 2 tab Oxytocin (Pitocin) 10 unit IM ASDIRECTED PRN PRN Reason: Excessive Vaginal Bleeding Silver Sulfadiazine (Silvadene 1% Cream 50 Gm) 1 gm TOP BID [facility] Last Admin: 04/25/20 23:08 Dose: Not Given Sodium Chloride (Saline Flush) 10 ml FLUSH ASDIRECTED PRN PRN Reason: Keep Vein Open Sodium Chloride (Saline Flush) 2.5 ml FLUSH ASDIRECTED PRN PRN Reason: Keep Vein Open Sodium Chloride (Normal Saline) 10 ml IV ASDIRECTED PRN PRN Reason: IV Use Sodium Chloride (Saline Flush) 10 ml FLUSH ASDIRECTED PRN PRN Reason: Keep Vein Open Sodium Chloride (Saline Flush) 2.5 ml FLUSH ASDIRECTED PRN PRN Reason: Keep Vein Open Sterile Water (Sterile Water For Irrigation) 1,000 ml IRR ASDIRECTED PRN PRN Reason: delivery Terbutaline Sulfate (Brethine) 0.25 mg SUBCUT ASDIRECTED PRN PRN Reason: Tacysystole Discontinued Medications Bupivacaine HCl (Marcaine 0.5%) Confirm Administered Dose 30 ml .ROUTE .STK-MED ONE Stop: 04/24/20 10:58 Last Admin: 04/24/20 12:47 Dose: Not Given Cefazolin Sodium (Ancef) Confirm Administered Dose 2 gm .ROUTE .STK-MED ONE Stop: 04/24/20 11:30 Citric Acid/Sodium Citrate (Bicitra Solution) Confirm Administered Dose 30 ml .ROUTE .STK-MED ONE Stop: 04/24/20 11:15 Last Admin: 04/24/20 11:18 Dose: 30 ml Ephedrine Sulfate (Ephedrine Sulfate) Confirm Administered Dose 50 mg .ROUTE .STK-MED ONE Stop: 04/23/20 17:39 Fentanyl (Sublimaze) 50 mcg IVPUSH Q5M PRN PRN Reason: Pain (severe 7-10) Stop: 04/25/20 11:31 Fentanyl/Bupivacaine HCl (Fentanyl/Bupivacaine/Ns 2 Mcg-0.125% 250 Ml) Confirm Administered Dose 250 mls @ as directed .ROUTE .STK-MED ONE Stop: 04/23/20 17:08 Last Admin: 04/24/20 12:46 Dose: Not Given Sodium Chloride (Normal Saline) Confirm Administered Dose 20 mls @ as directed .ROUTE .STK-MED ONE Stop: 04/23/20 17:39 Sodium Chloride (Normal Saline) Confirm Administered Dose 20 mls @ as directed .ROUTE .STK-MED ONE Stop: 04/24/20 11:30 Ketorolac Tromethamine (Toradol) 30 mg IVPUSH Q6H [facility] Stop: 04/25/20 12:31 Last Admin: 04/25/20 12:29 Dose: 30 mg Morphine Sulfate (Duramorph Pf) Confirm Administered Dose 10 mg .ROUTE .STK-MED ONE Stop: 04/24/20 11:11 Nalbuphine HCl (Nubain) 2.5 mg IVPUSH Q3H PRN PRN Reason: Pruritis Stop: 04/25/20 11:31 Octyl Cyanoacrylate (Dermabond Advance) Confirm Administered Dose 1 applic .ROUTE .STK-MED ONE Stop: 04/24/20 11:16 Last Admin: 04/24/20 12:47 Dose: Not Given Ondansetron HCl (Zofran) Confirm Administered Dose 4 mg .ROUTE .STK-MED ONE Stop: 04/24/20 11:03 Ondansetron HCl (Zofran) Confirm Administered Dose 4 mg .ROUTE .STK-MED ONE Stop: 04/24/20 02:23 - Infant Interaction Infant Disposition, : [place] in Room with Family Infant Interaction: Holding Infant Infant Feeding: Breastfed ; Nursed Well Support Person: - Recovery Exam Fundal Tone: Firm Fundal Level: 1 Fingerbreadths Below Umbilicus Fundal Placement: Midline Lochia Amount: Scant Lochia Color: Rubra/Red Bladder Status: Voiding Urinary Elimination: Voided - Exam General: Alert, Oriented Neck: Supple Lungs: Normal Respiratory Effort Cardiovascular: Regular Rhythm GI/Abdominal Exam: Soft, Non-Tender, No Distention Extremities: Pedal Edema (1+) Skin: Warm, Dry, Intact Wound/Incisions: Healing Well Neurological: No New Focal Deficit Psy/Mental Status: Alert, Normal Affect, Normal Mood - Problem List & Annotations (1) Status post primary low transverse section SNOMED Code(s): 232440051, 21733076, 230413559, 128397668, [id number] Code(s): Z98.891 - HISTORY OF UTERINE SCAR FROM PREVIOUS SURGERY Status: Acute Current Visit: Yes - Problem List Review Problem List Initiated/Reviewed/Updated: Yes - My Orders Last 24 Hours: My Active Orders 04/25/20 17:30 Ibuprofen [Motrin] 800 mg PO Q8H PRN 04/26/20 08:24 Ready for Discharge [RC] PER UNIT ROUTINE - Assessment Assessment:: 24yo s/p 1LTCS for arrest of descent at 38w2d, POD#2 - Plan Plan:: 1. Desires discharge home today, reviewed discharge instructions. Follow-up incision check in 2 weeks. 2. Gestational hypertension, blood pressure normal since delivery. 3. Continue .
== END 2020-04-26 13:46 | disposition home or self-care (01) | DRG 540 ==
LOC: MW.OBCHECK 09:02 → MW.OB 11:54 → MW.OBCHECK 12:57 → OBSVTOIN 04-24 12:21 → MW.OB 04-24 15:55
PROVIDERS: ADMIT Obstetrics & Gynecology; ATTEND Obstetrics & Gynecology
PROC: 10D00Z1 Extraction of Products of Conception, Low, Open Approach (ICD-10-PCS; principal; 2020-04-24)
PROC: 3E0R3BZ Introduction of Anesthetic Agent into Spinal Canal, Percutaneous Approach (ICD-10-PCS; 2020-04-24)
DX: O13.4 Gestational [pregnancy-induced] hypertension without significant proteinuria, complicating childbirth (principal); O62.1 Secondary uterine inertia; Z3A.38 38 weeks gestation of pregnancy; Z37.0 Single live birth
CPT/HCPCS: 36415; 51702; 59025; 80053; 82570; 82803; 84156; 84550; 85014; 85018; 85025; 86592; 86593; 86850; 86900; 86901; 88307; A9270-GY; J0595; J0690; J1885; J2270; J2405; J2590; J7120

== ENCOUNTER 2024-04-04 05:16 | Inpatient (IN) | payer BC, OTHER ==
[2024-04-04] MEDS ORDERED: Sodium Chloride 0.9% 2.5 ML Syringe FLUSH PRN (05:47)
[2024-04-04] MEDS ORDERED: Sodium Chloride 0.9% 20 ML SDV IV PRN (05:47)
[2024-04-04] MEDS ORDERED: Sodium Chloride 0.9% 10 ML Syringe FLUSH PRN (05:47)
[2024-04-04] MEDS: Lactated Ringers 1,000 ML IV SCH ×2 (05:50→10:44)
[2024-04-04] MEDS ORDERED: Oxytocin/0.9 % Sodium Chloride 30 UNIT/500 ML BAG IV SCH (06:00)
[2024-04-04 06:19] LABS: HEMATOCRIT 37.7 % (37.0-47.0); HEMOGLOBIN 13.6 g/dL (12.0-16.0); MEAN CORPUSCULAR HEMOGLOBIN 32.3 pg (28.0-32.0); MEAN CORPUSCULAR HGB CONC 36.1 g/dL (32.0-36.0); MEAN CORPUSCULAR VOLUME 89.5 fL (83.0-99.0); MEAN PLATELET VOLUME 10.5 fL (9.4-12.3); PLATELET COUNT,PLT 177 K/uL (150-400); RED BLOOD CELL COUNT 4.21 M/uL (4.10-5.30); WHITE BLOOD CELL COUNT,WBC 11.11 K/uL (3.9-11.3)
[2024-04-04] MEDS ORDERED: Ketorolac 30 MG/ML SDV ONE (07:34)
[2024-04-04] MEDS ORDERED: Ropivacaine 0.5% 5 MG/ML 30 ML SDV ONE (07:34)
[2024-04-04] MEDS ORDERED: EPINEPHrine 1 MG/1 ML Amp ONE (07:34)
[2024-04-04] MEDS ORDERED: Morphine PF 10 MG/10 ML SDV ONE (07:34)
[2024-04-04] MEDS ORDERED: Bupivacaine 0.25% 30 ML SDV ONE (07:34)
[2024-04-04] MEDS ORDERED: ceFAZolin 1 GM Vial ONE (07:34)
[2024-04-04] MEDS ORDERED: fentaNYL 100 MCG/2 ML SDV ONE (07:34)
[2024-04-04] MEDS ORDERED: Ondansetron 4 MG/2 ML SDV ONE (07:34)
[2024-04-04] MEDS ORDERED: Phenylephrine HCl In 0.9% NaCl 1 MG/10 ML Syringe ONE ×2 (07:34→08:24)
[2024-04-04] MEDS ORDERED: Oxytocin 10 Units/1 ML SDV ONE (07:34)
[2024-04-04] MEDS ORDERED: diphenhydrAMINE 50 MG/ML SDV IVPUSH PRN (08:47)
[2024-04-04] MEDS ORDERED: Oxytocin 10 Units/1 ML SDV IM PRN (08:47)
[2024-04-04] MEDS ORDERED: Methylergonovine 0.2 MG/1 ML Amp IM PRN (08:47)
[2024-04-04] MEDS ORDERED: Lanolin 100% Cream 7 GM Tube TOP PRN (08:47)
[2024-04-04] MEDS ORDERED: Ondansetron 4 MG/2 ML SDV IVPUSH PRN (08:47)
[2024-04-04] MEDS ORDERED: Bisacodyl 10 MG Supp RECTAL PRN (08:47)
[2024-04-04] MEDS ORDERED: Misoprostol 200 MCG Tab RECTAL PRN (08:47)
[2024-04-04 09:05] LABS: PH,UMBILICAL ARTERIAL 7.185 (7.18-7.38); PH,UMBILICAL VENOUS 7.269 (7.25-7.45)
[2024-04-04] MEDS ORDERED: ePHEDrine 50 MG/ML SDV ONE (10:04)
[2024-04-04] MEDS: Acetaminophen 1,000 MG in Premix Bag 1 BAG IV PRN (10:40)
[2024-04-04] MEDS: ceFAZolin 2 GM in Sodium Chloride 0.9% 50 ML IV ONE (11:12)
[2024-04-04] MEDS: Citric Acid/Sodium Citrate Solution 30 ML Cup PO ONE (11:13)
[2024-04-04] MEDS: Docusate Sodium 100 MG Cap PO SCH (11:13)
[2024-04-04] MEDS: Simethicone 80 MG Tab.Chew PO SCH (13:50)
[2024-04-04] MEDS: Ketorolac 30 MG/ML SDV IVPUSH SCH (14:07)
[2024-04-04] MEDS ORDERED: Acetaminophen 1,000 MG in Premix Bag 1 BAG IV PRN (22:11)
[2024-04-04] MEDS: Acetaminophen 1,000 MG in Premix Bag 1 BAG IV SCH (22:21)
[2024-04-05 06:35] LABS: HEMATOCRIT 31.8 % (37.0-47.0); HEMOGLOBIN 11.2 g/dL (12.0-16.0)
[2024-04-05] MEDS: Acetaminophen/oxyCODONE 325-5 MG Tab PO PRN (19:33)
[2024-04-05] MEDS ORDERED: Ibuprofen 400 MG Tab ONE (21:39)
[2024-04-05] MEDS: Ibuprofen 800 MG Tab PO PRN (21:45)
[2024-04-06] MEDS: Acetaminophen/oxyCODONE 325-5 MG Tab PO PRN (04:35)
== END 2024-04-06 11:58 | disposition home or self-care (01) | DRG 540 ==
LOC: MW.OB 05:16
PROVIDERS: ADMIT Obstetrics & Gynecology; ATTEND Obstetrics & Gynecology
PROC: 10D00Z1 Extraction of Products of Conception, Low, Open Approach (ICD-10-PCS; principal; 2024-04-04 08:00)
DX: O34.211 Maternal care for low transverse scar from previous cesarean delivery (principal); O99.214 Obesity complicating childbirth; Z37.0 Single live birth; Z3A.39 39 weeks gestation of pregnancy
CPT/HCPCS: 36415; 59025; 82803; 85014; 85018; 85027; 86592; 86850; 86900; 86901; A9270-GY; J0131; J0171; J0665; J0690; J1100; J1885; J2274; J2371; J2405; J2590; J2795; J3010; J3490; J7120